=== PATIENT | female | born 1970 | race Two or more races ===

== ENCOUNTER 2021-09-20 15:57 | Inpatient (IN) | payer MEDICAID ==
[~2021-09-20] VITALS: Ht 167.6 cm; Wt 141.0 kg
[2021-09-20 17:51] LABS: GLUCOMETER DEV NAME(LOC) POC.BV
[2021-09-20] MEDS ORDERED: QUEtiapine FUMARATE 100 MG TABLET PO PRN (18:45)
[2021-09-20 20:07] VITALS: BP 110/64
[2021-09-20] MEDS: LORazepam 2 MG TABLET PO PRN (23:34)
[2021-09-21 07:29] VITALS: BP 112/65
[2021-09-21 08:11] VITALS: BP 122/74
[2021-09-21] MEDS: LORazepam 2 MG TABLET PO PRN ×2 (12:27→21:47)
[2021-09-21] MEDS ORDERED: MAGNESIUM HYDROXIDE SUSPENSION 30 ML UDCUP PO PRN (14:30)
[2021-09-21] MEDS ORDERED: IBUPROFEN 400 MG TABLET PO PRN (14:30)
[2021-09-21] MEDS ORDERED: GuaiFENesin/D-METHORPHAN [SUGAR-FREE] 200-20MG/10 ML SYRUP UDCUP PO PRN (14:30)
[2021-09-21] MEDS ORDERED: PETROLATUM,WHITE 28 GM JELLY TP PRN (14:30)
[2021-09-21] MEDS ORDERED: MAG HYDROX/AL HYDROX/SIMETH ES 30 ML SUSPENSION UDCUP PO PRN (14:30)
[2021-09-21] MEDS ORDERED: CloNIDine HCL 0.1 MG TABLET PO PRN (14:30)
[2021-09-21] MEDS ORDERED: LOPERAMIDE HCL 2 MG CAPSULE PO PRN (14:30)
[2021-09-21] MEDS ORDERED: ONDANSETRON HCL 4 MG TABLET PO PRN (14:30)
[2021-09-21] MEDS ORDERED: ALBUTEROL SULFATE HFA 90 MCG/PUFF 8 GM INHALER IH PRN (14:30)
[2021-09-21] MEDS ORDERED: DOCUSATE SODIUM 100 MG CAPSULE PO PRN (14:30)
[2021-09-21] MEDS ORDERED: ACETAMINOPHEN 325 MG TABLET PO PRN (14:30)
[2021-09-21] MEDS ORDERED: NICOTINE 14 MG/24 HOUR PATCH TD PRN (14:30)
[2021-09-21 16:12] VITALS: BP_SYST 110; BP_SYST 129; BP_DIAS 60; BP_DIAS 76
[2021-09-21] MEDS ORDERED: RisperiDONE 1 MG TABLET PO SCH (17:00)
[2021-09-21] MEDS: ARIPiprazole 10 MG TABLET PO SCH (17:33)
[2021-09-22 04:57] VITALS: BP 119/61
[2021-09-22 07:22] LABS: BASOPHILS % (AUTO) 0.4 % (0.0-2.0); EOSINOPHILS % (AUTO) 3.6 % (1.0-6.0); HEMATOCRIT 40.2 % (36-46); HEMOGLOBIN 13.7 g/dL (12.0-16.0); LYMPHOCYTES # (AUTO) 1.8 K/uL (1.0-4.8); MEAN CORPUSCULAR HEMOGLOBIN 31.9 pg (26.0-34.0); MEAN CORPUSCULAR HGB CONC 34.1 G/dL (31.0-37.0); MEAN CORPUSCULAR VOLUME 93 fL (80-100); MONOCYTES # (AUTO) 0.8 K/uL (0.1-1.0); MONOCYTES % (AUTO) 9.4 % (2.0-9.0); NEUTROPHILS # (AUTO) 5.2 K/uL (1.8-7.7); NEUTROPHILS % (AUTO) 64.6 % (40.0-70.0); PLATELET COUNT (AUTO) 271 K/uL (150-450); RED BLOOD CELL COUNT(AUTO) 4.31 MIL/uL (4.00-5.20); RED CELL DISTRIBUTION WIDTH 13.1 % (11.5-14.5)
[2021-09-22 07:31] LABS: HEMOGLOBIN A1C 5.9 % (3.8-5.6)
[2021-09-22 08:24] LABS: ALANINE AMINOTRANSFERASE 71 U/L (12-78); ALBUMIN 3.2 g/dL (3.4-5.0); ALKALINE PHOSPHATASE 65 U/L (46-116); ANION GAP 2 mmol/L (8-16); ASPARTATE AMINOTRANSFERASE 31 U/L (15-37); BILIRUBIN,TOTAL 0.6 mg/dL (0.1-1.0); CALCIUM, TOTAL 8.2 mg/dL (8.8-10.5); CARBON DIOXIDE 31 mmol/L (22-29); CHLORIDE 102 mmol/L (98-107); CHOL/HDL RATIO 3.5 (3.9-5.7); CHOLESTEROL 144 mg/dL (131-200); CREATININE 0.57 mg/dL (0.60-1.30); FREE T4 (FREE THYROXINE) 1.14 ng/dL (0.76-1.46); GLOMERULAR FILTR. RATE CALC > 60 mL/min (>60); GLUCOSE,RANDOM 106 mg/dL (70-110); HCG,QUANTITATIVE 2 mIU/mL (0-6); HDL CHOLESTEROL 41 mg/dL (40-60); LDL CHOL (CALC.) 87 mg/dL (0-130); POTASSIUM 4.5 mmol/L (3.5-5.1); SODIUM SERUM 135 mmol/L (136-145); THYROID STIMULATING HORMONE 0.82 uIU/mL (0.36-3.74); TOTAL PROTEIN, SERUM 6.7 g/dL (6.4-8.2); TRIGLYCERIDES 78 mg/dL (15-150); UREA NITROGEN, BLOOD 12 mg/dL (7-18)
[2021-09-22] MEDS: ARIPiprazole 10 MG TABLET PO SCH (08:30)
[2021-09-22 16:43] VITALS: BP 124/77
[2021-09-22] MEDS: LORazepam 2 MG TABLET PO PRN (22:43)
[2021-09-23 01:30] VITALS: BP 128/82
[2021-09-23] MEDS: ZOLPIDEM TARTRATE 10 MG TABLET PO PRN ×2 (01:33→20:24)
[2021-09-23] MEDS: ARIPiprazole 10 MG TABLET PO SCH (08:04)
[2021-09-23 08:57] VITALS: BP 137/90
[2021-09-23 16:06] VITALS: BP 130/82
[2021-09-24 04:24] VITALS: BP 123/66
[2021-09-24] MEDS: LORazepam 2 MG TABLET PO PRN ×4 (04:37→19:20)
[2021-09-24] MEDS: ARIPiprazole 10 MG TABLET PO SCH (07:52)
[2021-09-24 08:18] VITALS: BP 122/79
[2021-09-24 16:04] VITALS: BP 123/81
[2021-09-24] MEDS: ZOLPIDEM TARTRATE 10 MG TABLET PO PRN (22:08)
[2021-09-25 05:33] VITALS: BP 120/74
[2021-09-25] MEDS: ARIPiprazole 10 MG TABLET PO SCH (08:01)
[2021-09-25 08:08] VITALS: BP 138/87
[2021-09-25 16:06] VITALS: BP 133/87
[2021-09-25] MEDS: LORazepam 2 MG TABLET PO PRN (22:06)
[2021-09-26 00:57] VITALS: BP 131/76
[2021-09-26] MEDS: ZOLPIDEM TARTRATE 10 MG TABLET PO PRN (01:40)
[2021-09-26 08:02] VITALS: BP 107/59
[2021-09-26] MEDS: ARIPiprazole 10 MG TABLET PO SCH (08:13)
[2021-09-26 17:25] VITALS: BP 145/86
[2021-09-26] MEDS: LORazepam 2 MG TABLET PO PRN (22:22)
[2021-09-27 00:48] VITALS: BP 136/82
[2021-09-27] MEDS: ZOLPIDEM TARTRATE 10 MG TABLET PO PRN (03:07)
[2021-09-27] MEDS: ARIPiprazole 10 MG TABLET PO SCH (08:21)
[2021-09-27 08:35] VITALS: BP 90/57
[2021-09-27 16:25] VITALS: BP 129/82
[2021-09-27] MEDS: LORazepam 2 MG TABLET PO PRN (21:41)
[2021-09-28] MEDS: ZOLPIDEM TARTRATE 10 MG TABLET PO PRN (00:21)
[2021-09-28 07:11] VITALS: BP 122/74
[2021-09-28] MEDS: ARIPiprazole 10 MG TABLET PO SCH (08:07)
[2021-09-28 08:10] VITALS: BP 116/62
[2021-09-28 16:23] VITALS: BP 129/77
[2021-09-28] MEDS: LORazepam 2 MG TABLET PO PRN (22:04)
[2021-09-29] MEDS: LORazepam 2 MG TABLET PO PRN ×2 (04:02→21:45)
[2021-09-29 05:54] VITALS: BP 122/69
[2021-09-29 08:12] VITALS: BP 122/68
[2021-09-29] MEDS: ARIPiprazole 10 MG TABLET PO SCH (08:34)
[2021-09-29 16:25] VITALS: BP 114/66
[2021-09-30 01:11] VITALS: BP 110/69
[2021-09-30] MEDS: ARIPiprazole 10 MG TABLET PO SCH (08:09)
[2021-09-30 08:11] VITALS: BP 121/74
[2021-09-30] MEDS ORDERED: ARIP10TA38 PO ×2 (13:29→13:39)
== END 2021-09-30 14:30 | disposition home or self-care (01) | DRG 750 ==
LOC: B3A 18:16
PROVIDERS: ADMIT Psychiatry & Neurology Child & Adolescent Psychiatry; ATTEND Psychiatry & Neurology Child & Adolescent Psychiatry
DX: F20.0 Paranoid schizophrenia (principal); E87.1 Hypo-osmolality and hyponatremia; E66.9 Obesity, unspecified; M17.10 Unilateral primary osteoarthritis, unspecified knee; F41.9 Anxiety disorder, unspecified; G47.30 Sleep apnea, unspecified; F19.10 Other psychoactive substance abuse, uncomplicated; Z20.822 Contact with and (suspected) exposure to COVID-19; Z88.8 Allergy status to other drugs, medicaments and biological substances; Z59.00 Homelessness unspecified; Z71.51 Drug abuse counseling and surveillance of drug abuser; Z85.3 Personal history of malignant neoplasm of breast; Z68.42 Body mass index [BMI] 45.0-49.9, adult
CPT/HCPCS: 80053; 80061; 83036; 84439; 84443; 84702; 85025